=== PATIENT | male | born 1960 | race Two or more races ===

== ENCOUNTER → 2017-02-09 11:54 | Outpatient (CLI) | payer OTHER | END | disposition home or self-care (01) | LOC: D.RAD 11:54 | DX: A15.9 Respiratory tuberculosis unspecified (principal) ==

== ENCOUNTER → 2018-03-22 09:51 | Outpatient (CLI) | payer OTHER | END | disposition home or self-care (01) | LOC: D.RAD 09:51 | DX: A15.9 Respiratory tuberculosis unspecified (principal) ==